=== PATIENT | male | born 1955 | race Native Hawaiian/Other Pacific Islander ===

== ENCOUNTER → 2018-08-21 | Emergency (ER) | payer OTHER ==
[~2018-08-21] VITALS: Ht 172.7 cm; Wt 69.9 kg
[~2018-08-21] MED LIST: ASPIR-8181 MG PO; CLOZAPINE100 MG PO; LIPITOR20 MG PO; LITHIUM CARB300 MG PO; METF500T PO; MIDODRINE2.5 MG PO; MIRALAX3350 N1 PO; NEURONTIN 100M100 MG PO; RIVADIS4 TOP; TESSALON PER100 MG PO
[2018-08-21 15:44] VITALS: BP 109/66; TEMP 98.4
[2018-08-21 16:39] LABS: PLATELET COUNT 344 K/uL (142-355)
[2018-08-21 16:41] LABS: POTASSIUM 4.2 mmol/L (3.6-5.2)
== END ==
LOC: ED 15:47
PROVIDERS: Family Medicine
DX: R46.89 Other symptoms and signs involving appearance and behavior (principal); F20.89 Other schizophrenia; Z04.6 Encounter for general psychiatric examination, requested by authority
CPT/HCPCS: 36415; 80053; 81000; 85027; 93005; 99285; J2405